=== PATIENT | female | born 1995 | race Caucasian/White ===

== ENCOUNTER 2016-10-25 21:15 | Emergency (ER) | payer SELFPAY ==
--- NOTE | 2016-10-25 22:27 | ED NURSING NOTES ---
Clinical Report - Nurses [facility] [address] [place] [address] 10/25/2016 21:17 Patient: ARMANDO TREVIZO TRIAGE Triage time 21:Oct 25 2016. Acuity: LEVEL 4. Chief Complaint: PAINFUL URINATION, URGENCY and FREQUENCY and (oliguria). 21:10/25/16. SEPSIS SCREEN: Sepsis Screen. Negative (no infection suspected/documented). --21:32 Carol Olivier R.N. 21:10/25/16. BP: 120/78. HR: 86. RR: 18. O2 saturation: 100%. Temp: 98.6 F. Pain level now: 5/10. --21:32 Carol Olivier R.N. Weight: 54.4 kg stated. Height/Length: 66 inches Per Patient. BMI: 19.4. --21:29 Carol Olivier R.N. Medications None. --21:30 Carol Olivier R.N. Medication/allergy information source: the patient. --21:32 Carol Olivier R.N. Allergies No Known Drug Allergy. --21:30 Carol Olivier R.N. History Arrived by private vehicle. Historian: patient. Accompanied by family. ( Limited american). No spotting, hematuria, abnormal bleeding, flank pain or fever. Treatment NUMERICAL CONTROL LATHE OPERATOR: None. PAST MEDICAL HX: Last normal menstrual period was 5 weeks ago. 1. Para 1. Sexual history - sexually active. Uses depo implants. SOCIAL HX: Never smoker. No alcohol use or drug use. No infectious disease exposure. ABUSE ASSESSMENT: No report of abuse. NUTRITIONAL RISK ASSESSMENT: The nutritional risk assessment revealed no deficiencies. FUNCTIONAL ASSESSMENT: Functional assessment: no impairments noted. LEARNING NEEDS ASSESSMENT: The learning needs assessment revealed no barriers. SKIN INTEGRITY ASSESSMENT: Skin integrity risk assessment completed. No skin integrity risk identified. --21:32 Carol Olivier R.N. PROBLEMS: UTI - Urinary Tract Infection. --21:30 Carol Olivier R.N. ADDITIONAL SURGERIES: . --21:30 Carol Olivier R.N. Interventions ID band on patient. --21:32 Carol Olivier R.N. NURSING PROGRESS NOTES 21:35 10/25/16. The initial plan of care for this patient includes an assessment with efforts to address impairment of the genitourinary system. This plan of care was discussed with the patient. Reassurance given. Patient ID band checked for patient name and birthdate: patient confirmed. Instructions provided to collect clean catch urine and patient verbalized understanding. Clean catch urine collected with return of abhay-colored clear urine; sample sent to lab for urinalysis and HCG. Specimen labeled in the presence of the patient. Patient identifiers checked. Call light placed in reach. Bed placed in lowest position. Brakes of bed on. --21:35 Carol Olivier R.N. 22:10/25/2016 Pyridium (Phenazopyridine HCl) PO Tablets 200 mg given. Allergies verified and confirmed 5 rights. --22:07 Carol Olivier R.N. 22:10/25/2016 Ibuprofen PO Tablets 800 mg given. Allergies verified and confirmed 5 rights. --22:07 Carol Olivier R.N. 22:10/25/16. Patient walked to radiology. --22:10 Carol Olivier R.N. 22:10/25/2016 Bactrim DS (Sulfamethoxazole-TMP DS) PO Tablets 1 tab given. Allergies verified and confirmed 5 rights. --22:34 Carol Olivier R.N. DISPOSITION / DISCHARGE 22:30 10/25/16. Departure time: :Oct 25 2016. Condition at departure: improved and stable. The goals identified in the patient's plan of care were met. Learning barriers present. Ability to learn limited by language barrier; teaching performed with the patient and family. Reviewed medication(s) side effects, precautions, dosing and course information. Prescription(s) given to the patient. Patient verbalized understanding. Written instructions provided in Bengali and Slovenian. The patient was discharged home and accompanied by spouse. She left the Emergency Department ambulatory and via private vehicle. Spouse driving. --22:35 Carol Olivier R.N. 21:29 10/25/16. BP: 120/78. HR: 86. RR: 18. O2 saturation: 100%. Temp: 98.6 F. Pain level now: 12/30. --22:35 Carol Olivier R.N. Locked/Released at 10/25/2016 22:36 by Carol Olivier R.N.
--- NOTE | 2016-10-25 22:27 | ED CLINICAL REPORT ---
Clinical Report - Physicians/Mid Levels [facility] [address] [place] [address] 10/25/2016 21:17 Patient: ARMANDO TREVIZO Time Seen: 21:23. Arrived- By private vehicle. Historian- patient. HISTORY OF PRESENT ILLNESS Chief Complaint: DYSURIA. This started several days ago and still present. The symptoms are described as moderate. Modifying factors- worsened by urination. Not relieved by anything. The patient has had abdominal pain. The pain is described as located in the suprapubic region. No pelvic pain, vaginal pain, low back pain, flank pain or hematuria. She has missed a period and had pain with urination and urgency of urination. The patient has had urinary frequency. Sexually active. control measures utilized. Denies current . Similar symptoms previously: ( Pt has been having flank, low back, and low abdominal pain since dx of kidney stones.). Recent medical care: ( PT was dx with bilateral kidney stones in [place] in August.). Not recently seen/assessed. REVIEW OF SYSTEMS No nausea, vomiting, diarrhea, black stools or headache. No fever, chills, anorexia, eye discomfort or sore throat. No cough, difficulty breathing, chest pain, skin rash or enlarged lymph nodes. No joint pain. All systems otherwise negative, except as recorded above. PAST HISTORY Problems: UTI - Urinary Tract Infection. Additional Surgeries: . Medications: None. Allergies: No Known Drug Allergy. SOCIAL HISTORY Never smoker. No alcohol use or drug use. ADDITIONAL NOTES The nursing notes have been reviewed. PHYSICAL EXAM Vital Signs: 10/25/2016 21:29 BP: 120/78. HR: 86. RR: 18. O2 saturation: 100%. Temp: 98.6 F. Pain level now: 5/10. Have been reviewed. Appearance: Alert. Oriented X3. No acute distress. HEENT: Normal external inspection. ENT: Pharynx normal. Neck: Neck supple. CVS: Heart sounds normal. Respiratory: No respiratory distress. Breath sounds normal. Abdomen: Soft and nontender. Back: Normal external inspection. No CVA tenderness. Skin: Skin warm and dry. Normal skin color. No rash. Normal skin turgor. Extremities: Extremities nontender. No lower extremity edema. Neuro: Oriented X 3. Mood/affect normal. No motor deficit. No sensory deficit. LABS, X-RAYS, AND EKG Abdominal CT: Normal study. Normal aorta. Normal liver, spleen, pancreas, gallbladder and adrenals. Normal kidneys. Uterus normal. Adnexa normal. Bladder normal. Appendix normal. No mass. No free fluid. No bony lesion. No diverticulitis. Study type: renal stone evaluation; abdomen and pelvis. Abdominal CT performed without contrast. The study was independently viewed by me, interpreted by the radiologist and contemporaneously by me and discussed with the radiologist. Prior studies were not available for comparison. Laboratory Tests: UA-Culture if indicated: (KIRSTIE: 10/25/2016 21:35) ( MsgRcvd 10/25/2016 21:47) Final results Test Result Flag Units (Reference) URINE COLOR YELLOW URINE APPEARANCE CLEAR URINE GLUCOSE NEGATIVE (NEGATIVE) URINE BILIRUBIN NEGATIVE (NEGATIVE) URINE KETONE NEGATIVE (NEGATIVE) URINE SPECIFIC GRAVITY 1.020 (1.010-1.030) URINE PH 6.0 (5.0-8.0) URINE PROTEIN NEGATIVE (NEGATIVE) URINE UROBILINOGEN 0.2 EU/dL (0.2-1.0) URINE NITRITE NEGATIVE (NEGATIVE) URINE BLOOD TRACE-INTACT (NEGATIVE) URINE LEUK ESTERASE POSITIVE (NEGATIVE) URINE RBC 1-3 rbc/hpf (0-1) URINE WBC 3-5 wbc/hpf (0-1) URINE EPITHELIAL CELLS 0-1 EPI/hpf (0-5) URINE BACTERIA MODERATE (2+ TO 3+) (NONE SEEN) URINE COMMENT CULTURE INDICATED URINE CULTURES ARE SET-UP BASED ON THE FOLLOWING CRITERIA:POSITIVE NITRITEPOSITIVE LEUKOCYTE ESTERASEGREATER THAN 10 WHITE BLOOD CELLSMODERATE (2+) OR GREATER BACTERIA Urine: (KIRSTIE: 10/25/2016 21:35) ( MsgRcvd 10/25/2016 21:45) Final results Test Result Flag Units (Reference) URINE NEGATIVE . Pulse Oximetry: 10/25/2016 21:29 O2 saturation: 100%. (FIO2 - room air). Interpretation: normal. PROGRESS AND PROCEDURES Course of Care: PT was given ibuprofen and pyridium. She was worked up with a UA and a CT KUB. Pt was found to have a UTI, but no stones, and was started on Bactrim for this. Patient and spouse counseled in person regarding the patient's stable condition, test results, diagnosis and need for follow-up. Concerns were addressed. Old medical records reviewed. Disposition: Discharged. Condition: stable. CLINICAL IMPRESSION Acute urinary tract infection with cystitis. INSTRUCTIONS Drink plenty of fluids. (The CT scan shows no stones. Your test is negative.). Warnings: GENERAL WARNINGS: Return or contact your physician immediately if your condition worsens or changes unexpectedly, if not improving as expected, or if other problems arise. Prescription Medications: Pyridium 200 mg: take 1 orally every 8 hours as needed for urinary problems. Dispense ten (10). No refill. Substitution is permissible. Septra DS 800 mg / 160 mg: take 1 tablet orally every 12 hours for 7 days. No refill. Substitution is permissible. Follow-up: Follow up with your doctor in seven days if not better. Understanding of the discharge instructions verbalized by patient and family. (Electronically signed by Marisa Sandoval MD 10/25/2016 22:52)
--- NOTE | 2016-10-25 22:27 | ED ORDER SUMMARY ---
..... Patient: ARMANDO TREVIZO OrderSheet [facility] VisitID: [id number] [place] [address] 21y, F Registration Date/Time: 10/25/2016 ORDER SHEET Weight: 54.4 kg (stated) Allergies: No Known Drug Allergy GENERAL ORDERS: UA-Culture if indicated Urgent (21:23 10/25/2016 Janessa BELLA) (Ack 21:25 dotHIV ER Reo Asset Manager) (22:03 EInderbitzen R.N.) Urine Urgent (21:10/25/2016 Janessa BELLA) (Ack 21:25 dotHIV ER Reo Asset Manager) (22:03 EInderbitzen R.N.) CT Abd/Pel wo Cont Urgent (22:01 10/25/2016 Janessa BELLA) (Ack 22:10 dotHIV ER Reo Asset Manager) (22:10 RFay) MEDICATION ORDERS: Pyridium PO 200 mg (NOW) (21:59 10/25/2016 Janessa BELLA) (22:07 EInderbitzen R.N.) Ibuprofen PO 800 mg (NOW) (21:59 10/25/2016 Janessa BELLA) (22:07 EInderbitzen R.N.) Bactrim DS PO (Tablet 800-160 mg) 1 tab (NOW) (22:23 10/25/2016 Janessa BELLA) (22:34 EInderbitzen R.N.) IV FLUIDS: ORDER SHEET NOTES: [Electronically signed by Carol Olivier R.N. (22:36 10/25/2016)] [Electronically signed by Marisa Sandoval MD (22:52 10/25/2016)] [Electronically locked/signed by Carol Olivier R.N. (22:36 10/25/2016)]
--- NOTE | 2016-10-25 22:27 | ED ORDER SUMMARY ---
..... Patient: ARMANDO TREVIZO OrderSheet [facility] VisitID: [id number] [place] [address] 21y, F Registration Date/Time: 10/25/2016 ORDER SHEET Weight: 54.4 kg (stated) Allergies: No Known Drug Allergy GENERAL ORDERS: UA-Culture if indicated Urgent (21:23 10/25/2016 Janessa BELLA) (Ack 21:25 amBX ER Bleach Boiler Filler) (22:03 EInderbitzen R.N.) Urine Urgent (21:10/25/2016 Janessa BELLA) (Ack 21:25 amBX ER Bleach Boiler Filler) (22:03 EInderbitzen R.N.) CT Abd/Pel wo Cont Urgent (22:01 10/25/2016 Janessa BELLA) (Ack 22:10 amBX ER Bleach Boiler Filler) (22:10 RFay) MEDICATION ORDERS: Pyridium PO 200 mg (NOW) (21:59 10/25/2016 Janessa BELLA) (22:07 EInderbitzen R.N.) Ibuprofen PO 800 mg (NOW) (21:59 10/25/2016 Janessa BELLA) (22:07 EInderbitzen R.N.) Bactrim DS PO (Tablet 800-160 mg) 1 tab (NOW) (22:23 10/25/2016 Janessa BELLA) (22:34 EInderbitzen R.N.) IV FLUIDS: ORDER SHEET NOTES: [Electronically signed by Carol Olivier R.N. (22:36 10/25/2016)] [Electronically signed by Marisa Sandoval MD (22:52 10/25/2016)] [Electronically locked/signed by Carol Olivier R.N. (22:36 10/25/2016)]
--- NOTE | 2016-10-25 22:27 | ED NURSING NOTES ---
Clinical Report - Nurses [facility] [address] [place] [address] 10/25/2016 21:17 Patient: ARMANDO TREVIZO TRIAGE Triage time 21:Oct 25 2016. Acuity: LEVEL 4. Chief Complaint: PAINFUL URINATION, URGENCY and FREQUENCY and (oliguria). 21:10/25/16. SEPSIS SCREEN: Sepsis Screen. Negative (no infection suspected/documented). --21:32 Carol Olivier R.N. 21:10/25/16. BP: 120/78. HR: 86. RR: 18. O2 saturation: 100%. Temp: 98.6 F. Pain level now: 5/10. --21:32 Carol Olivier R.N. Weight: 54.4 kg stated. Height/Length: 66 inches Per Patient. BMI: 19.4. --21:29 Carol Olivier R.N. Medications None. --21:30 Carol Olivier R.N. Medication/allergy information source: the patient. --21:32 Carol Olivier R.N. Allergies No Known Drug Allergy. --21:30 Carol Olivier R.N. History Arrived by private vehicle. Historian: patient. Accompanied by family. ( Limited martiniquais). No spotting, hematuria, abnormal bleeding, flank pain or fever. Treatment MERCHANDISE SUPERVISOR: None. PAST MEDICAL HX: Last normal menstrual period was 5 weeks ago. 1. Para 1. Sexual history - sexually active. Uses depo implants. SOCIAL HX: Never smoker. No alcohol use or drug use. No infectious disease exposure. ABUSE ASSESSMENT: No report of abuse. NUTRITIONAL RISK ASSESSMENT: The nutritional risk assessment revealed no deficiencies. FUNCTIONAL ASSESSMENT: Functional assessment: no impairments noted. LEARNING NEEDS ASSESSMENT: The learning needs assessment revealed no barriers. SKIN INTEGRITY ASSESSMENT: Skin integrity risk assessment completed. No skin integrity risk identified. --21:32 Carol Olivier R.N. PROBLEMS: UTI - Urinary Tract Infection. --21:30 Carol Olivier R.N. ADDITIONAL SURGERIES: . --21:30 Carol Olivier R.N. Interventions ID band on patient. --21:32 Carol Olivier R.N. NURSING PROGRESS NOTES 21:35 10/25/16. The initial plan of care for this patient includes an assessment with efforts to address impairment of the genitourinary system. This plan of care was discussed with the patient. Reassurance given. Patient ID band checked for patient name and birthdate: patient confirmed. Instructions provided to collect clean catch urine and patient verbalized understanding. Clean catch urine collected with return of abhay-colored clear urine; sample sent to lab for urinalysis and HCG. Specimen labeled in the presence of the patient. Patient identifiers checked. Call light placed in reach. Bed placed in lowest position. Brakes of bed on. --21:35 Carol Olivier R.N. 22:10/25/2016 Pyridium (Phenazopyridine HCl) PO Tablets 200 mg given. Allergies verified and confirmed 5 rights. --22:07 Carol Olivier R.N. 22:10/25/2016 Ibuprofen PO Tablets 800 mg given. Allergies verified and confirmed 5 rights. --22:07 Carol Olivier R.N. 22:10/25/16. Patient walked to radiology. --22:10 Carol Olivier R.N. 22:10/25/2016 Bactrim DS (Sulfamethoxazole-TMP DS) PO Tablets 1 tab given. Allergies verified and confirmed 5 rights. --22:34 Carol Olivier R.N. DISPOSITION / DISCHARGE 22:30 10/25/16. Departure time: :Oct 25 2016. Condition at departure: improved and stable. The goals identified in the patient's plan of care were met. Learning barriers present. Ability to learn limited by language barrier; teaching performed with the patient and family. Reviewed medication(s) side effects, precautions, dosing and course information. Prescription(s) given to the patient. Patient verbalized understanding. Written instructions provided in Upper Sorbian and Estonian. The patient was discharged home and accompanied by spouse. She left the Emergency Department ambulatory and via private vehicle. Spouse driving. --22:35 Carol Olivier R.N. 21:29 10/25/16. BP: 120/78. HR: 86. RR: 18. O2 saturation: 100%. Temp: 98.6 F. Pain level now: 12/30. --22:35 Carol Olivier R.N. Locked/Released at 10/25/2016 22:36 by Carol Olivier R.N.
--- NOTE | 2016-10-25 22:36 | DIAGNOSTIC IMAGING REPORT ---
PROCEDURE: CT ABDOMEN/PELVIS W/O CONTRAST INDICATION: PAIN TECHNIQUE: Axial CT images were obtained through the abdomen and pelvis without IV contrast. Coronal and sagittal reformations were created. COMPARISON: None. FINDINGS: Clear lung bases. Normal sized heart. No hiatal hernia. The unenhanced appearance of the liver, gallbladder, adrenal glands, kidneys, pancreas and spleen is normal. The abdominal aorta is normal in its course and caliber. There are no suspicious calcifications, retroperitoneal adenopathy or masses. The stomach, upper bowel loops, and mesentery are normal. Intact anterior abdominal wall. No free fluid or inflammation. Increased amount of stool diffusely in the colon. The unenhanced appearance of the uterus, ovaries, urinary bladder, pelvic vessels, and pelvic bowel loops is normal. Normal appendix. No suspicious calcifications, free pelvic fluid or mass. Intact osseous structures. IMPRESSION: 1. No acute process. 2. Mild fecal retention. 3. Discussed with Dr. Sandoval in the emergency room. All CT scans at this facility use dose modulation, iterative reconstruction, and/or weight-based dosing when appropriate to reduce radiation dose to as low as reasonably achievable.
--- NOTE | 2016-10-25 22:52 | ED MAR SUMMARY ---
..... Medication Administration Record [facility] [address] [place] [address] Patient: ARMANDO TREVIZO Visit ID: [id number] 21y, F Weight: 54.4 kg Height/Length: 66 in BMI: 19.4 ALLERGIES: No Known Drug Allergy Given 22:10/25/2016 Carol Olivier R.N. Medication Administered: PYRIDIUM [PO] (PHENAZOPYRIDINE HCL), Dose: 200 mg Tablets PO. Medication Ordered: Pyridium PO 200 mg (NOW). Given 22:10/25/2016 Carol Olivier R.NMiguel Medication Administered: IBUPROFEN [PO], Dose: 800 mg Tablets PO. Medication Ordered: Ibuprofen PO 800 mg (NOW). Given 22:10/25/2016 Carol Olivier R.NMiguel Medication Administered: BACTRIM DS [PO] (SULFAMETHOXAZOLE-TMP DS), Dose: 1 tab Tablets PO. Medication Ordered: Bactrim DS PO (Tablet 800-160 mg) 1 tab (NOW).
--- NOTE | 2016-10-25 22:52 | ED MAR SUMMARY ---
..... Medication Administration Record [facility] [address] [place] [address] Patient: ARMANDO TREVIZO Visit ID: [id number] 21y, F Weight: 54.4 kg Height/Length: 66 in BMI: 19.4 ALLERGIES: No Known Drug Allergy Given 22:10/25/2016 Carol Olivier R.N. Medication Administered: PYRIDIUM [PO] (PHENAZOPYRIDINE HCL), Dose: 200 mg Tablets PO. Medication Ordered: Pyridium PO 200 mg (NOW). Given 22:10/25/2016 Carol Olivier R.NMiguel Medication Administered: IBUPROFEN [PO], Dose: 800 mg Tablets PO. Medication Ordered: Ibuprofen PO 800 mg (NOW). Given 22:10/25/2016 Carol Olivier R.NMiguel Medication Administered: BACTRIM DS [PO] (SULFAMETHOXAZOLE-TMP DS), Dose: 1 tab Tablets PO. Medication Ordered: Bactrim DS PO (Tablet 800-160 mg) 1 tab (NOW).
--- NOTE | 2016-10-25 22:52 | ED MED RECONCILIATION SUMMARY ---
Patient: RAJI PETERSON ARMANDO Medication Reconciliation Report [facility] VisitID: [id number] [address] [place] [address] 21y, F Registration Date/Time: 10/25/2016 Weight: 54.4 kg Height/Length: 66 in. BMI: 19.4 ALLERGIES: No Known Drug Allergy The patient's Home Medications are listed below: NONE. The source(s) of the original Home Medication information: patient The following Medications were given to the patient in the Emergency Department: Pyridium [PO] PO 200 mg, administered: 10/25/2016 10:05:00 PM Ibuprofen [PO] PO 800 mg, administered: 10/25/2016 10:05:00 PM Bactrim DS [PO] PO 1 tab, administered: 10/25/2016 10:30:00 PM The following Medications were prescribed to the patient: Pyridium 200 mg: take 1 orally every 8 hours as needed for urinary problems. Dispense ten (10). No refill. Substitution is permissible. -- Marisa Sandoval MD Septra DS 800 mg / 160 mg: take 1 tablet orally every 12 hours for 7 days. No refill. Substitution is permissible. -- Marisa Sandoval MD
--- NOTE | 2016-10-25 22:52 | ED MED RECONCILIATION SUMMARY ---
Patient: RAJI PETERSON ARMANDO Medication Reconciliation Report [facility] VisitID: [id number] [address] [place] [address] 21y, F Registration Date/Time: 10/25/2016 Weight: 54.4 kg Height/Length: 66 in. BMI: 19.4 ALLERGIES: No Known Drug Allergy The patient's Home Medications are listed below: NONE. The source(s) of the original Home Medication information: patient The following Medications were given to the patient in the Emergency Department: Pyridium [PO] PO 200 mg, administered: 10/25/2016 10:05:00 PM Ibuprofen [PO] PO 800 mg, administered: 10/25/2016 10:05:00 PM Bactrim DS [PO] PO 1 tab, administered: 10/25/2016 10:30:00 PM The following Medications were prescribed to the patient: Pyridium 200 mg: take 1 orally every 8 hours as needed for urinary problems. Dispense ten (10). No refill. Substitution is permissible. -- Marisa Sandoval MD Septra DS 800 mg / 160 mg: take 1 tablet orally every 12 hours for 7 days. No refill. Substitution is permissible. -- Marisa Sandoval MD
--- NOTE | 2016-10-25 22:52 | ED DISCHARGE INSTRUCTIONS ---
Patient: ARMANDO TREVIZO General Instructions [facility] VisitID: [id number] [place] [address] 21y, F Registration Date/Time: 10/25/2016 Acute urinary tract infection with cystitis. INSTRUCTIONS Drink plenty of fluids. (The CT scan shows no stones. Your test is negative.). Warnings: GENERAL WARNINGS: Return or contact your physician immediately if your condition worsens or changes unexpectedly, if not improving as expected, or if other problems arise. Prescription Medications: Pyridium 200 mg: take 1 orally every 8 hours as needed for urinary problems. Dispense ten (10). No refill. Substitution is permissible. Septra DS 800 mg / 160 mg: take 1 tablet orally every 12 hours for 7 days. No refill. Substitution is permissible. Follow-up: Follow up with your doctor in seven days if not better. Understanding of the discharge instructions verbalized by patient and family. ADDITIONAL INFORMATION Bladder Infection,Female (Adult) A bladder infection ("cystitis" or "UTI") usually causes a constant urge to urinate and a burning when passing urine. Urine may be cloudy, smelly or dark. There may be pain in the lower abdomen. A bladder infection occurs when bacteria from the vaginal area enter the bladder opening (urethra). This can occur from sexual intercourse, wearing tight clothing, dehydration and other factors. Home Care: Drink lots of fluids (at least 6-8 glasses a day, unless you must restrict fluids for other medical reasons). This will force the medicine into your urinary system and flush the bacteria out of your body. Avoid sexual intercourse until your symptoms are gone. Avoid caffeine, alcohol and spicy foods. These can irritate the bladder. A bladder infection is treated with antibiotics. You may also be given Pyridium (generic = phenazopyridine) to reduce the burning sensation. This medicine will cause your urine to become a bright orange color. The orange urine may stain clothing. You may wear a pad or panty-liner to protect clothing. Preventing Future Infections: Always wipe from front to back after a bowel movement. Keep the genital area clean and dry. Drink plenty of fluids each day to avoid dehydration. Both sexual partners should wash before intercourse. Urinate right after intercourse to flush out the bladder. Wear cotton underwear and cotton-lined panty hose; avoid tight-fitting pants. If you are on control pills and are having frequent bladder infections, discuss with your doctor. Follow Up: Return to this facility or see your doctor if ALL symptoms are not gone after three days of treatment. Get Prompt Medical Attention if any of the following occur: Fever of 100.4F (38C) or higher, or as directed by your healthcare provider No improvement by the third day of treatment Increasing back or abdominal pain Repeated vomiting; unable to keep medicine down Weakness, dizziness or fainting Vaginal discharge Pain, redness or swelling in the labia (outer vaginal area) You have been given the following additional information: Bladder Infection, Female (Adult) (Electronically signed by Marisa Sandoval MD 10/25/2016 22:52)
== END 2016-10-25 22:30 | disposition home or self-care (01) ==
LOC: ED SRH 21:15
DX: N30.90 Cystitis, unspecified without hematuria (principal)
CPT/HCPCS: 90004; 90469; 93070